=== PATIENT | male | born 1945 | race Caucasian/White ===

== ENCOUNTER 2016-11-12 11:34 | Emergency (ER) | payer OTHER ==
[2016-11-12 12:02] VITALS: BP 155/85; PULSE 84; RESP 16; TEMP 98.1; O2SAT 92
--- NOTE | 2016-11-12 12:17 | UCPHY ---
H & P Patient Type: New Smoking Status: Never smoked Time Seen by Provider: 11/12/16 11:42 HPI/ROS: CHIEF COMPLAINT: Right ankle and foot pain HISTORY OF PRESENT ILLNESS: 71-year-old male presents to urgent care by private vehicle complaining of ongoing pain in his right foot and ankle for 1 week. The patient states about a week ago he was hiking and then the following day he developed pain in his right foot and ankle especially with movement and weight-bearing. He denies any other known trauma or injury. He does have a remote history of gout about 15 years ago although he states that this feels very different. He has had gout in his great toe before but no where else. Denies any other known trauma or injury. ROS: Denies right calf pain, pain in his right knee or hip. Denies pain in the groin. (Rain Garcia) Past Medical/Surgical History: Hypertension, osteoarthritis, bilateral knee replacements (Rain Garcia) Social History: and lives in [place] (Rain Garcia) Physical Exam: Examination of the right ankle reveals minimal swelling. There is no redness or warmth or signs of cellulitis. He has pain especially with range of motion of the right ankle. There is no palpable bony deformity. Tender to palpate over the lateral malleolus. Nontender to palpate over the ankle mortise or over the medial aspect of the right ankle. He has full dorsi and plantar flexion although this does cause pain with full range of motion of the right ankle. Normal sensation to light touch with normal 2 point discrimination. Strong dorsalis pedis pulse on the dorsal aspect of the right foot. Right calf is nontender. Right knee is nontender. Antalgic gait. (Rain Garcia) Constitutional: Initial Vital Signs Temperature (C) 36.7 C 11/12/16 11:57 Heart Rate 84 11/12/16 11:57 Respiratory Rate 16 11/12/16 11:57 Blood Pressure 155/85 H 11/12/16 11:57 O2 Sat (%) 92 11/12/16 11:57 O2 Delivery Mode Room Air Allergies/Adverse Reactions: Penicillins Allergy (Verified 11/12/16 11:56) Home Medications: Medication Instructions Recorded Lisinopril 11/12/16 Proton Pump Inhibitor 11/12/16 VITAMIN D 11/12/16 MDM/Departure - MDM Diagnostics: Xrays right ankle and right foot reveal degenerative changes without fracture. This is reviewed by myself the PAC system as well as by the radiologist. (Rain Garcia) Procedures: Patient was placed in a Dejesus boot and examined post application in good placement with normal FREIGHT FLAGMAN. (Rain Garcia) ED Course/Re-evaluation: 71-year-old male presents to Urgent Care with pain in his right foot and ankle after hiking. The pain is been present for 1 week. He has no signs of cellulitis. I doubt that he has a septic joint. He has no pain with small passive range of motion. His calf is nontender. The patient was concerned about possible stress fracture. (Rain Garcia) Urgent Care PA supervision Physician documentation: The patient was evaluated and managed by the physician assistant therapy aide. My co- signature indicates that I have reviewed this chart and I agree with the findings and plan of care as documented. I am is secondary supervising physician. (Reginaldo Sanabria) Differential Diagnosis: Including but not limited to gout, cellulitis, fracture, sprain, stress fracture , claudication (Rain Garcia) - Depart Disposition: Home, Routine, Self-Care Clinical Impression: Right ankle sprain Qualifiers: Encounter type: initial encounter Involved ligament of ankle: unspecified ligament Qualifier Code: (S93.401A) Sprain of unspecified ligament of right ankle, initial encounter Condition: Good Instructions: Ankle Sprain (ED) Additional Instructions: Ibuprofen 400-600mg every 8 hours for pain as directed. Weight bear as tolerated with boot. Return if you develop numbness or tingling in your toes, increased swelling, or if you feel worse in any way. Stand Alone Forms: Work Limited Duty Referrals: Reginaldo Alfaro MD [Medical Doctor] - 2-3 days, call for appt. (Orthopedist) - PQRS PQRS Measurement: 134: Depression screening and followup, PRIME BURGER-PHQ2 (12 years and older) Over the last 2 weeks, how often have you been bothered by any of the following problems? 1. Feeling down, depressed, or hopeless? 2. Little interest or pleasure in doing things? Patient answered no to both 1 and 2 130: Documentation of medications. Reviewed all patient medications, doses, route and frequency. 226: Do you smoke? No. 47: 65 and older: Advanced care planning. Patient has advanced directive. 51: 18 years old and older with diagnosis of COPD, spirometry performance. Patient has no history of COPD 52: 18 years old and older with COPD and symptoms of COPD or FEV1<60% predicted prescribed a B Agonist. Not applicable (Rain Garcia)
--- NOTE | 2016-11-12 12:36 | DX ---
Right ankle series 3 views Right foot series 3 views History: Pain and swelling without trauma. Findings: Right ankle: Osseous structures are intact without fracture. No periosteal thickening is seen. The an kle mortise has a normal contour. No intra-articular calcific fragment is seen. There is mild spurrin g along the calcaneus. Right foot series: Moderate degenerative changes are noted at the first MTP joint with subchondral er osions, endplate sclerosis, and marginal osteophytes. Mild joint space narrowing is also seen at the second DIP joint. There is also mild spurring at the talonavicular joint. The remainder the joint spa caitlyn are relatively normal. No periosteal thickening is seen. Soft tissues are unremarkable. In pression: 1. Mild calcaneal spurs. 2. Moderate degenerative changes at the first MTP joint with mild changes at the second DIP joint and talonavicular joint compatible with underlying osteoarthritis. 3. No acute osseous abnormality seen about the right ankle and foot.
== END 2016-11-12 13:04 | disposition home or self-care (01) ==
LOC: CED 11:34
DX: S93.401A Sprain of unspecified ligament of right ankle, initial encounter (principal); Y93.01 Activity, walking, marching and hiking
CPT/HCPCS: 73610-PO; 73630-PO; G0463-PO; L4386